=== PATIENT | male | born 1945 | race Caucasian/White ===

== ENCOUNTER 2024-04-01 20:07 | Inpatient (IN) | payer MEDICARE, OTHER ==
[~2024-04-01] VITALS: Ht 185.4 cm; Wt 72.1 kg
[2024-04-01] MEDS ORDERED: GLUC1KIT IM (20:34)
[2024-04-01] MEDS ORDERED: ACET650S13 RC (20:34)
[2024-04-01] MEDS ORDERED: AMIN30LI27 PO (20:34)
[2024-04-01] MEDS ORDERED: TRIA80OI TP (20:34)
[2024-04-01] MEDS ORDERED: TRIA15OI2 TP (20:34)
[2024-04-01] MEDS ORDERED: RISP1TAB7 PO (20:34)
[2024-04-01] MEDS ORDERED: MULT-225 PO (20:34)
[2024-04-01] MEDS ORDERED: TRAM50TA2 PO (20:34)
[2024-04-01] MEDS ORDERED: MUPI1OIN5 TP (20:34)
[2024-04-01] MEDS ORDERED: SERT25TA PO (20:34)
[2024-04-01 21:26] LABS: BASOPHILS % (AUTO) 1.2 % (0.0-2.0); EOSINOPHILS # (AUTO) 0.1 K/uL (0.0-0.7); EOSINOPHILS % (AUTO) 4.3 % (0.0-7.0); HEMATOCRIT 34.3 % (36.7-47.1); HEMOGLOBIN 11.6 g/dL (12.5-16.3); LYMPHOCYTES # (AUTO) 0.9 K/uL (0.8-4.8); MEAN CORPUSCULAR HEMOGLOBIN 31.3 uug (23.8-33.4); MEAN CORPUSCULAR HGB CONC 34 g/dL (32.5-36.3); MEAN CORPUSCULAR VOLUME 92.7 fL (73.0-96.2); MONOCYTES # (AUTO) 0.6 K/uL (0.1-1.30); MONOCYTES % (AUTO) 20.3 % (0.0-11.0); NEUTROPHILS # (AUTO) 1.3 K/uL (1.8-8.9); NEUTROPHILS % (AUTO) 43.2 % (38.5-71.5); PLATELET COUNT (AUTO) 137 K/uL (152-348); RED CELL DISTRIBUTION WIDTH 13.6 % (12.1-16.2); WHITE BLOOD COUNT (AUTO) 2.9 K/uL (3.6-10.2)
[2024-04-01 21:32] LABS: DIFFERENTIAL COMMENT 1
[2024-04-01 21:36] LABS: BASOPHILS % (MANUAL) 1 % (0-2); EOSINOPHILS % (MANUAL) 4 % (0-8); LYMPHOCYTES % (MANUAL) 30 % (20-40); MONOCYTES % (MANUAL) 15 % (2-10); NEUTROPHILS % (MANUAL) 50 % (42-75)
[2024-04-01 21:40] LABS: CALCIUM 8.8 mg/dL (8.5-10.1); CARBON DIOXIDE 29 mmol/L (21-32); CHLORIDE 109 mmol/L (98-107); CREATININE 1.2 mg/dL (0.6-1.3); GLUCOSE 169 mg/dL (74-106); POTASSIUM 4.2 mmol/L (3.5-5.1); SODIUM SERUM 146 mmol/L (136-145); UREA NITROGEN, BLOOD 33 mg/dL (7-18)
[2024-04-01 21:42] LABS: ETHANOL < 3 MG/DL (0-10)
[2024-04-01 21:51] LABS: THYROID STIMULATING HORMONE 1.237 mIU/mL (0.358-3.740)
[2024-04-01 21:52] LABS: ACETAMINOPHEN 6.4 ug/mL (10-30); ALANINE AMINOTRANSFERASE 45 U/L (16-63); ALBUMIN 3.3 g/dL (3.4-5.0); ALKALINE PHOSPHATASE 95 U/L (50-136); ASPARTATE AMINOTRANSFERASE 32 U/L (15-37); BILIRUBIN,TOTAL 0.2 mg/dL (0.2-1.0); TOTAL PROTEIN, SERUM 6.7 g/dL (6.4-8.2)
[2024-04-01 21:53] LABS: BILIRUBIN,DIRECT < 0.1 mg/dL (0.0-0.2)
[2024-04-02] MEDS ORDERED: HALOPERIDOL LACTATE 5 MG/1 ML VIAL ONE (00:10)
[2024-04-02] MEDS: HALOPERIDOL LACTATE 5 MG/1 ML VIAL IM ONE (00:15)
[2024-04-02] MEDS ORDERED: MAG HYDROX/AL HYDROX/SIMETH 30 ML LIQUID UDC PO PRN (00:45)
[2024-04-02] MEDS ORDERED: MAGNESIUM HYDROXIDE 30 ML LIQUID UDC PO PRN (00:45)
[2024-04-02] MEDS ORDERED: ACETAMINOPHEN 325 MG TABLET PO PRN (00:45)
[2024-04-02] MEDS: BLOOD SUGAR DIAGNOSTIC 1 EACH STRIP VI ONE (01:31)
[2024-04-02 01:55] VITALS: BP 147/74; TEMP 98; O2SAT 96
[2024-04-02] MEDS ORDERED: MUPI22OI2 ×2 (08:11)
[2024-04-02] MEDS ORDERED: TRAM50TA2 PO (08:11)
[2024-04-02] MEDS ORDERED: ASCO-340 PO (08:11)
[2024-04-02] MEDS ORDERED: INSU100V39 SQ (08:11)
[2024-04-02] MEDS ORDERED: HOME MED MISCELLANEOUS XX SCH (13:00)
[2024-04-02] MEDS ORDERED: TRIAMCINOLONE ACET 0.025% OINT 15 GM TUBE TP PRN (13:00)
[2024-04-02] MEDS ORDERED: ACETAMINOPHEN 650 MG SUPP.RECT RC PRN (13:00)
[2024-04-02] MEDS ORDERED: DEXTROSE 50% 50 ML DISP.SYRIN IV PRN (13:30)
[2024-04-02] MEDS: PROTEIN SUPPLEMENT (PROSTAT) 30 ML LIQUID PO SCH (17:00)
[2024-04-02] MEDS: BLOOD SUGAR DIAGNOSTIC 1 EACH STRIP VI SCH (17:00)
[2024-04-02 18:13] VITALS: BP 149/80; TEMP 98.7; O2SAT 95
[2024-04-02 20:00] VITALS: BP 126/84; TEMP 98; O2SAT 93
[2024-04-02] MEDS: ZIPRASIDONE 20 MG CAPSULE PO SCH (20:51)
[2024-04-02] MEDS: DIVALPROEX 125 MG TABLET.DR PO SCH (20:52)
[2024-04-02] MEDS: INSULIN REGULAR, HUMAN 300 UNIT/3 ML VIAL SQ PRN (20:59)
[2024-04-03 08:15] VITALS: BP 150/74; TEMP 98; O2SAT 98
[2024-04-03] MEDS ORDERED: MUPIROCIN 2% OINT 22 GM TUBE TP SCH (09:00)
[2024-04-03] MEDS ORDERED: SODIUM HYPOCHLORITE 0.125% (QUARTER STRENGTH) 473 ML BOTTLE TP SCH (09:00)
[2024-04-03] MEDS: MULTIVITAMINS,THERAPEUTIC TABLET PO SCH (09:55)
[2024-04-03] MEDS: ASCORBIC ACID 500 MG TABLET PO SCH (09:55)
[2024-04-03] MEDS: MUPIROCIN 2% OINT 22 GM TUBE TP SCH (09:58)
[2024-04-03] MEDS: TRIAMCINOLONE ACET 0.1% OINT 60 GM TUBE TP SCH (09:59)
[2024-04-03 15:36] VITALS: BP 160/88; TEMP 98; O2SAT 98
[2024-04-03 20:00] VITALS: TEMP 98; O2SAT 98
[2024-04-03] MEDS: SULFAMETH/TRIMETH 800/160 MG TABLET PO SCH (20:43)
[2024-04-03] MEDS: CEphaleXIN 500 MG CAPSULE PO SCH (21:19)
[2024-04-03] MEDS: ZOLPIDEM 5 MG TABLET PO PRN (23:19)
[2024-04-04 09:00] VITALS: BP 115/61; TEMP 98; O2SAT 98
[2024-04-04 15:37] VITALS: BP 127/56; TEMP 98; O2SAT 98
[2024-04-04 19:57] VITALS: BP 136/61; TEMP 98; O2SAT 96
[2024-04-05 08:16] VITALS: BP 102/53; TEMP 98.4; O2SAT 96
[2024-04-05 17:02] VITALS: BP 139/48; TEMP 98.3; O2SAT 96
[2024-04-05] MEDS: ZIPRASIDONE 20 MG CAPSULE PO SCH (21:01)
[2024-04-06 07:55] VITALS: BP 145/58; TEMP 97.3; O2SAT 96
[2024-04-06] MEDS: DIVALPROEX SPRINKLE 125 MG CAP.SPRINK PO SCH ×2 (08:27→20:20)
[2024-04-06 08:41] LABS: BASOPHILS # (AUTO) 0.1 K/UL (0.0-0.2); BASOPHILS % (AUTO) 0.9 % (0.0-2.0); EOSINOPHILS # (AUTO) 0.5 K/uL (0.0-0.7); EOSINOPHILS % (AUTO) 7.8 % (0.0-7.0); HEMATOCRIT 43.3 % (36.7-47.1); HEMOGLOBIN 14.1 g/dL (12.5-16.3); LYMPHOCYTES # (AUTO) 1.5 K/uL (0.8-4.8); MEAN CORPUSCULAR HGB CONC 33 g/dL (32.5-36.3); MEAN CORPUSCULAR VOLUME 95.2 fL (73.0-96.2); MONOCYTES # (AUTO) 0.7 K/uL (0.1-1.30); NEUTROPHILS # (AUTO) 3.6 K/uL (1.8-8.9); NEUTROPHILS % (AUTO) 57.3 % (38.5-71.5); PLATELET COUNT (AUTO) 179 K/uL (152-348); RED BLOOD CELL COUNT(AUTO) 4.55 MIL/uL (4.06-5.63); RED CELL DISTRIBUTION WIDTH 13.8 % (12.1-16.2); WHITE BLOOD COUNT (AUTO) 6.4 K/uL (3.6-10.2)
[2024-04-06 08:48] LABS: DIFFERENTIAL COMMENT 1
[2024-04-06 09:02] LABS: ALANINE AMINOTRANSFERASE 30 U/L (16-63); ALBUMIN 3.8 g/dL (3.4-5.0); ALKALINE PHOSPHATASE 93 U/L (50-136); ASPARTATE AMINOTRANSFERASE 21 U/L (15-37); BILIRUBIN,TOTAL 0.6 mg/dL (0.2-1.0); CALCIUM 9.4 mg/dL (8.5-10.1); CARBON DIOXIDE 28 mmol/L (21-32); CHLORIDE 102 mmol/L (98-107); CREATININE 1.1 mg/dL (0.6-1.3); GLUCOSE 95 mg/dL (74-106); POTASSIUM 4.2 mmol/L (3.5-5.1); SODIUM SERUM 138 mmol/L (136-145); TOTAL PROTEIN, SERUM 7.8 g/dL (6.4-8.2); UREA NITROGEN, BLOOD 23 mg/dL (7-18); VALPROIC ACID 30 ug/mL (50-100)
[2024-04-06 16:56] VITALS: BP 134/75; TEMP 97.6; O2SAT 97
[2024-04-06] MEDS ORDERED: levoFLOXacin 500 MG TABLET PO SCH (18:00)
[2024-04-06] MEDS: levoFLOXacin 250 MG TABLET PO SCH (18:58)
[2024-04-06] MEDS: TRAMADOL HCL 50 MG TABLET PO PRN (19:40)
[2024-04-07 08:07] VITALS: BP 97/54; TEMP 97.7; O2SAT 96
[2024-04-07] MEDS ORDERED: levoFLOXacin 250 MG TABLET PO SCH (18:30)
[2024-04-07] MEDS ORDERED: ZIPR40CA2 PO (18:38)
[2024-04-08] MEDS ORDERED: DIVA125C2 PO (09:33)
== END 2024-04-07 14:41 | disposition short-term general hospital (02) | DRG 885 ==
LOC: ER 20:17 → GPS 23:15
PROVIDERS: ADMIT Psychiatry & Neurology Psychiatry; ATTEND Nurse Practitioner Acute Care
DX: F25.9 Schizoaffective disorder, unspecified (principal); F02.818 Dementia in other diseases classified elsewhere, unspecified severity, with other behavioral disturbance; F02.83 Dementia in other diseases classified elsewhere, unspecified severity, with mood disturbance; L03.115 Cellulitis of right lower limb; G30.9 Alzheimer's disease, unspecified; Z88.1 Allergy status to other antibiotic agents; S91.101A Unspecified open wound of right great toe without damage to nail, initial encounter; L03.031 Cellulitis of right toe; B96.5 Pseudomonas (aeruginosa) (mallei) (pseudomallei) as the cause of diseases classified elsewhere; B95.61 Methicillin susceptible Staphylococcus aureus infection as the cause of diseases classified elsewhere; X58.XXXA Exposure to other specified factors, initial encounter; Y92.129 Unspecified place in nursing home as the place of occurrence of the external cause; R60.0 Localized edema; Z91.199 Patient's noncompliance with other medical treatment and regimen due to unspecified reason; Z79.899 Other long term (current) drug therapy; L20.9 Atopic dermatitis, unspecified; N40.0 Benign prostatic hyperplasia without lower urinary tract symptoms; E11.42 Type 2 diabetes mellitus with diabetic polyneuropathy; J44.9 Chronic obstructive pulmonary disease, unspecified; F32.9 Major depressive disorder, single episode, unspecified; F43.10 Post-traumatic stress disorder, unspecified; E78.5 Hyperlipidemia, unspecified; E86.0 Dehydration; R13.10 Dysphagia, unspecified; F50.89 Other specified eating disorder; K21.9 Gastro-esophageal reflux disease without esophagitis
CPT/HCPCS: 36415; 70030-TC; 73630; 80164; 84443; 85025; 93005; A4606; A4663; G0480; J1630; J1815; J3590

== ENCOUNTER 2024-04-07 15:01 | Inpatient (IN) | payer MEDICARE, MEDICAID ==
[~2024-04-07] VITALS: Ht 177.8 cm; Wt 86.2 kg
[~2024-04-07 15:01] MED LIST: ACET650S13 RC; AMIN30LI27 PO; ASCO-340 PO; GLUC1KIT IM; INSU100V39 SQ; MULT-225 PO; MUPI1OIN5 TP; MUPI22OI2; TRAM50TA2 PO; TRIA15OI2 TP; TRIA80OI TP
[2024-04-07 15:29] VITALS: BP 125/61; TEMP 97.6; O2SAT 93
[2024-04-07] MEDS ORDERED: ZIPR40CA2 PO (18:38)
[2024-04-07] MEDS ORDERED: TRIAMCINOLONE ACET 0.025% OINT 15 GM TUBE TP PRN (20:00)
[2024-04-07] MEDS ORDERED: TRAMADOL HCL 50 MG TABLET PO PRN (20:00)
[2024-04-07] MEDS ORDERED: HYDROCODONE/APAP 5-325MG TABLET PO PRN (20:00)
[2024-04-07] MEDS ORDERED: MUPIROCIN 2% OINT 22 GM TUBE TP SCH (20:00)
[2024-04-07] MEDS ORDERED: VANCOMYCIN IV 200 ML ONE (21:24)
[2024-04-07] MEDS: ZIPRASIDONE 20 MG CAPSULE PO SCH (21:44)
[2024-04-07] MEDS: ACETAMINOPHEN 325 MG TABLET PO PRN (21:44)
[2024-04-07] MEDS: VANCOMYCIN IV 1,000 MG in IV NORMAL SALINE 250 ML IV ONE (21:45)
[2024-04-08 06:00] VITALS: BP 118/74; TEMP 97.2; O2SAT 94
[2024-04-08] MEDS: PANTOPRAZOLE SODIUM 40 MG TABLET.DR PO SCH (06:05)
[2024-04-08 07:35] LABS: BASOPHILS # (AUTO) 0.1 K/UL (0.0-0.2); EOSINOPHILS # (AUTO) 0.5 K/uL (0.0-0.7); HEMATOCRIT 40.9 % (36.7-47.1); HEMOGLOBIN 13.5 g/dL (12.5-16.3); LYMPHOCYTES # (AUTO) 1.3 K/uL (0.8-4.8); LYMPHOCYTES % (AUTO) 22.2 % (20.5-51.5); MEAN CORPUSCULAR HEMOGLOBIN 31.1 uug (23.8-33.4); MEAN CORPUSCULAR HGB CONC 33 g/dL (32.5-36.3); MEAN CORPUSCULAR VOLUME 94.1 fL (73.0-96.2); MONOCYTES # (AUTO) 0.6 K/uL (0.1-1.30); MONOCYTES % (AUTO) 10.3 % (0.0-11.0); NEUTROPHILS # (AUTO) 3.5 K/uL (1.8-8.9); NEUTROPHILS % (AUTO) 57.5 % (38.5-71.5); PLATELET COUNT (AUTO) 219 K/uL (152-348); RED BLOOD CELL COUNT(AUTO) 4.35 MIL/uL (4.06-5.63); RED CELL DISTRIBUTION WIDTH 13.7 % (12.1-16.2)
[2024-04-08 07:37] LABS: DIFFERENTIAL COMMENT 1
[2024-04-08 07:45] LABS: ERYTHROCYTE SEDIMENTATION RATE 14 MM/HR (0-15)
[2024-04-08 08:00] LABS: ALBUMIN 3.5 g/dL (3.4-5.0); BILIRUBIN,TOTAL 0.8 mg/dL (0.2-1.0); CALCIUM 8.9 mg/dL (8.5-10.1); CREATININE 1.1 mg/dL (0.6-1.3); PHOSPHOROUS 3.4 mg/dL (2.5-4.9); POTASSIUM 3.8 mmol/L (3.5-5.1); TOTAL PROTEIN, SERUM 7.3 g/dL (6.4-8.2)
[2024-04-08] MEDS: PROTEIN SUPPLEMENT (PROSTAT) 30 ML LIQUID PO SCH (08:00)
[2024-04-08] MEDS ORDERED: TRIAMCINOLONE ACET 0.1% OINT 60 GM TUBE TP SCH (09:00)
[2024-04-08] MEDS ORDERED: VANCOMYCIN HCL 750 MG in IV DEXTROSE 5% 250 ML IV SCH (09:00)
[2024-04-08] MEDS ORDERED: Medication Not On Formulary EA (Amino Acids/Protein Hydrolys (Pro-Stat Sugar Free Liquid PO SCH (09:00)
[2024-04-08] MEDS: ASCORBIC ACID 500 MG TABLET PO SCH (09:15)
[2024-04-08] MEDS: MULTIVITAMINS,THERAPEUTIC TABLET PO SCH (09:16)
[2024-04-08] MEDS: TRIAMCINOLONE ACET 0.1% OINT 60 GM TUBE TP SCH (09:16)
[2024-04-08] MEDS: MUPIROCIN 2% OINT 22 GM TUBE TP SCH (09:16)
[2024-04-08] MEDS ORDERED: DIVA125C2 PO (09:33)
[2024-04-08] MEDS: MEROPENEM 1 G in IV NORMAL SALINE 100 ML IV SCH (10:01)
[2024-04-08] MEDS: DIVALPROEX SPRINKLE 125 MG CAP.SPRINK PO SCH (11:26)
[2024-04-09] VITALS: BP 129/53; TEMP 97.6
[2024-04-09 06:00] VITALS: BP 136/53; TEMP 98.1
[2024-04-09] MEDS: SODIUM HYPOCHLORITE 0.125% (QUARTER STRENGTH) 473 ML BOTTLE TP SCH (08:33)
[2024-04-09] MEDS ORDERED: LEVO500T90 PO (09:59)
[2024-04-09] MEDS ORDERED: DOXY-326 PO (09:59)
[2024-04-09 10:33] VITALS: BP 136/53; TEMP 97.6; O2SAT 93
[2024-04-09 12:00] VITALS: BP 122/63; TEMP 97.4; O2SAT 93
[2024-04-09] MEDS ORDERED: MUPIROCIN 2% OINT 22 GM TUBE TP SCH (13:00)
[2024-04-09 17:32] VITALS: BP 121/62; TEMP 97.8; O2SAT 93
[2024-04-10] MEDS ORDERED: HYDR-3972 PO (02:08)
[2024-04-10] MEDS ORDERED: PANT40TA2 PO (02:08)
[2024-04-10] MEDS ORDERED: SODI473S8 MC (02:14)
== END 2024-04-09 18:38 | DRG 605 ==
LOC: MEDSURG3 15:01
PROVIDERS: ADMIT Internal Medicine; ATTEND Internal Medicine
PROC: 05HB33Z Insertion of Infusion Device into Right Basilic Vein, Percutaneous Approach (ICD-10-PCS; principal; 2024-04-08)
DX: S91.101A Unspecified open wound of right great toe without damage to nail, initial encounter (principal); L03.115 Cellulitis of right lower limb; F02.83 Dementia in other diseases classified elsewhere, unspecified severity, with mood disturbance; F02.82 Dementia in other diseases classified elsewhere, unspecified severity, with psychotic disturbance; X58.XXXA Exposure to other specified factors, initial encounter; Y92.89 Other specified places as the place of occurrence of the external cause; B96.5 Pseudomonas (aeruginosa) (mallei) (pseudomallei) as the cause of diseases classified elsewhere; B95.61 Methicillin susceptible Staphylococcus aureus infection as the cause of diseases classified elsewhere; F25.9 Schizoaffective disorder, unspecified; L20.9 Atopic dermatitis, unspecified; G30.9 Alzheimer's disease, unspecified; Z88.1 Allergy status to other antibiotic agents; R62.7 Adult failure to thrive; Z68.27 Body mass index [BMI] 27.0-27.9, adult; R54 Age-related physical debility
CPT/HCPCS: 36415; 71045; 83735; 84100; 85025; 85651; 93005; A4663; G0378; J2185; J3370; J3590; J7050

== ENCOUNTER 2024-04-09 18:54 | Inpatient (IN) | payer MEDICARE, OTHER ==
[~2024-04-09] VITALS: Ht 177.8 cm; Wt 73.5 kg
[~2024-04-09 18:54] MED LIST changes: +DIVA125C2 PO; +DOXY-326 PO; +LEVO500T90 PO; +ZIPR40CA2 PO
[2024-04-09] MEDS ORDERED: QUETIAPINE FUMARATE 25 MG TABLET PO PRN (19:45)
[2024-04-09] MEDS ORDERED: MAG HYDROX/AL HYDROX/SIMETH 30 ML LIQUID UDC PO PRN (19:45)
[2024-04-09] MEDS ORDERED: MAGNESIUM HYDROXIDE 30 ML LIQUID UDC PO PRN (19:45)
[2024-04-09 19:57] VITALS: BP 124/71; TEMP 98.2; O2SAT 96
[2024-04-09] MEDS: BLOOD SUGAR DIAGNOSTIC 1 EACH STRIP VI ONE (20:23)
[2024-04-09] MEDS ORDERED: ACETAMINOPHEN 650 MG SUPP.RECT RC PRN (20:30)
[2024-04-09] MEDS ORDERED: MUPIROCIN 2% OINT 22 GM TUBE TP SCH (20:30)
[2024-04-09] MEDS ORDERED: DEXTROSE 50% 50 ML DISP.SYRIN IV PRN (20:45)
[2024-04-09] MEDS: BLOOD SUGAR DIAGNOSTIC 1 EACH STRIP VI SCH (21:09)
[2024-04-09] MEDS: ZOLPIDEM 5 MG TABLET PO PRN (21:25)
[2024-04-09] MEDS ORDERED: levoFLOXacin 500 MG TABLET PO SCH (23:15)
[2024-04-10] MEDS ORDERED: HYDR-3972 PO (02:08)
[2024-04-10] MEDS ORDERED: PANT40TA2 PO (02:08)
[2024-04-10] MEDS ORDERED: SODI473S8 MC (02:14)
[2024-04-10 08:03] VITALS: BP 115/58; TEMP 98.2; O2SAT 96
[2024-04-10] MEDS ORDERED: DOXYCYCLINE HYCLATE 100 MG TABLET PO SCH (09:00)
[2024-04-10] MEDS ORDERED: SODIUM HYPOCHLORITE 0.125% (QUARTER STRENGTH) 473 ML BOTTLE TP SCH (09:00)
[2024-04-10] MEDS ORDERED: PROTEIN SUPPLEMENT (PROSTAT) 30 ML LIQUID PO SCH (09:00)
[2024-04-10] MEDS: MULTIVITAMINS,THERAPEUTIC TABLET PO SCH (10:00)
[2024-04-10] MEDS: TRIAMCINOLONE ACET 0.1% OINT 60 GM TUBE TP SCH (10:00)
[2024-04-10] MEDS: MUPIROCIN 2% OINT 22 GM TUBE TP SCH (10:00)
[2024-04-10] MEDS: ASCORBIC ACID 500 MG TABLET PO SCH (10:00)
[2024-04-10] MEDS: DOXYCYCLINE HYCLATE 100 MG TABLET PO SCH (10:01)
[2024-04-10] MEDS: PROTEIN SUPPLEMENT (PROSTAT) 30 ML LIQUID PO SCH (10:01)
[2024-04-10] MEDS: levoFLOXacin 500 MG TABLET PO SCH (10:02)
[2024-04-10] MEDS ORDERED: DIVALPROEX 125 MG TABLET.DR PO SCH (14:00)
[2024-04-10] MEDS: SODIUM HYPOCHLORITE 0.125% (QUARTER STRENGTH) 473 ML BOTTLE TP SCH (14:15)
[2024-04-10] MEDS: DIVALPROEX 250 MG TABLET.DR PO SCH (14:20)
[2024-04-10 15:09] VITALS: BP 109/65; TEMP 98; O2SAT 96
[2024-04-10] MEDS: INSULIN REGULAR, HUMAN 300 UNIT/3 ML VIAL SQ PRN (16:33)
[2024-04-10] MEDS: OLANZAPINE 2.5 MG TABLET PO SCH (16:35)
[2024-04-10 20:06] VITALS: BP 116/66; TEMP 98.1; O2SAT 95
[2024-04-10] MEDS: TRAMADOL HCL 50 MG TABLET PO PRN (20:40)
[2024-04-11 07:30] VITALS: BP 127/51; TEMP 98; O2SAT 98
[2024-04-11 16:32] VITALS: BP 97/45; TEMP 98; O2SAT 98
[2024-04-11 19:54] VITALS: BP 119/57; TEMP 98.1; O2SAT 96
[2024-04-11] MEDS: OLANZAPINE 2.5 MG TABLET PO SCH (20:18)
[2024-04-12 07:49] VITALS: BP 93/46; TEMP 98.2; O2SAT 97
[2024-04-12 16:16] VITALS: BP 117/79; TEMP 98.1; O2SAT 97
[2024-04-12 19:59] VITALS: BP 109/57; TEMP 98; O2SAT 98
[2024-04-12] MEDS: DIVALPROEX SPRINKLE 125 MG CAP.SPRINK PO SCH (21:35)
[2024-04-13 08:04] LABS: BASOPHILS # (AUTO) 0.3 K/UL (0.0-0.2); BASOPHILS % (AUTO) 4.3 % (0.0-2.0); EOSINOPHILS # (AUTO) 0.6 K/uL (0.0-0.7); EOSINOPHILS % (AUTO) 9.4 % (0.0-7.0); HEMATOCRIT 37.9 % (36.7-47.1); HEMOGLOBIN 12.5 g/dL (12.5-16.3); LYMPHOCYTES # (AUTO) 1.5 K/uL (0.8-4.8); LYMPHOCYTES % (AUTO) 23.2 % (20.5-51.5); MEAN CORPUSCULAR HEMOGLOBIN 30.8 uug (23.8-33.4); MEAN CORPUSCULAR HGB CONC 33 g/dL (32.5-36.3); MEAN CORPUSCULAR VOLUME 93.4 fL (73.0-96.2); MONOCYTES # (AUTO) 0.6 K/uL (0.1-1.30); MONOCYTES % (AUTO) 9.5 % (0.0-11.0); NEUTROPHILS # (AUTO) 3.4 K/uL (1.8-8.9); NEUTROPHILS % (AUTO) 53.6 % (38.5-71.5); PLATELET COUNT (AUTO) 190 K/uL (152-348); RED BLOOD CELL COUNT(AUTO) 4.06 MIL/uL (4.06-5.63); RED CELL DISTRIBUTION WIDTH 13.2 % (12.1-16.2); WHITE BLOOD COUNT (AUTO) 6.3 K/uL (3.6-10.2)
[2024-04-13 08:21] LABS: DIFFERENTIAL COMMENT 1
[2024-04-13 08:30] LABS: ALANINE AMINOTRANSFERASE 19 U/L (16-63); ALBUMIN 3.4 g/dL (3.4-5.0); ALKALINE PHOSPHATASE 70 U/L (50-136); ASPARTATE AMINOTRANSFERASE 11 U/L (15-37); BILIRUBIN,TOTAL 0.5 mg/dL (0.2-1.0); CALCIUM 9.4 mg/dL (8.5-10.1); CARBON DIOXIDE 34 mmol/L (21-32); CHLORIDE 107 mmol/L (98-107); GLUCOSE 96 mg/dL (74-106); POTASSIUM 4.3 mmol/L (3.5-5.1); SODIUM SERUM 145 mmol/L (136-145); TOTAL PROTEIN, SERUM 6.9 g/dL (6.4-8.2); UREA NITROGEN, BLOOD 30 mg/dL (7-18); VALPROIC ACID 26 ug/mL (50-100)
[2024-04-13 08:33] VITALS: BP 137/68; TEMP 98.3; O2SAT 96
[2024-04-13] MEDS: OLANZAPINE 5 MG TABLET PO SCH (08:46)
[2024-04-13 16:32] VITALS: BP 103/61; TEMP 98.1; O2SAT 96
[2024-04-13 19:52] VITALS: BP 118/64; TEMP 98.1; O2SAT 96
[2024-04-13] MEDS: TRAMADOL HCL 50 MG TABLET PO SCH (20:21)
[2024-04-13] MEDS: DIVALPROEX SPRINKLE 125 MG CAP.SPRINK PO SCH (21:12)
[2024-04-14 07:49] VITALS: BP 130/48; TEMP 97.9; O2SAT 96
[2024-04-14 15:35] VITALS: BP 121/57; TEMP 97.9; O2SAT 96
[2024-04-14] MEDS: REMEDY ESSENTIAL ZINC PASTE 113 GM TOP PRN (17:31)
[2024-04-14 19:52] VITALS: BP 124/50; TEMP 98.1; O2SAT 100
[2024-04-15 08:01] VITALS: BP 120/57; TEMP 98.2; O2SAT 98
[2024-04-15] MEDS: diphenhydrAMINE 25 MG CAP PO PRN (12:39)
[2024-04-15 15:18] VITALS: BP 117/72; TEMP 98.2; O2SAT 98
[2024-04-15 19:48] VITALS: BP 118/64; TEMP 98.2; O2SAT 93
[2024-04-15] MEDS: MELATONIN 3 MG TABLET PO SCH (20:10)
[2024-04-16 07:39] VITALS: BP 100/51; TEMP 98.2; O2SAT 98
[2024-04-16] MEDS: MUPIROCIN 2% OINT 22 GM TUBE TP SCH (08:44)
[2024-04-16 15:21] VITALS: BP 96/50; TEMP 98; O2SAT 96
[2024-04-17 07:15] LABS: BASOPHILS % (AUTO) 0.6 % (0.0-2.0); EOSINOPHILS # (AUTO) 0.5 K/uL (0.0-0.7); HEMATOCRIT 38.3 % (36.7-47.1); HEMOGLOBIN 12.8 g/dL (12.5-16.3); LYMPHOCYTES # (AUTO) 1.3 K/uL (0.8-4.8); LYMPHOCYTES % (AUTO) 18.8 % (20.5-51.5); MEAN CORPUSCULAR HEMOGLOBIN 31.8 uug (23.8-33.4); MEAN CORPUSCULAR HGB CONC 34 g/dL (32.5-36.3); MEAN CORPUSCULAR VOLUME 94.9 fL (73.0-96.2); MONOCYTES # (AUTO) 0.7 K/uL (0.1-1.30); MONOCYTES % (AUTO) 9.8 % (0.0-11.0); NEUTROPHILS # (AUTO) 4.3 K/uL (1.8-8.9); NEUTROPHILS % (AUTO) 63.8 % (38.5-71.5); PLATELET COUNT (AUTO) 151 K/uL (152-348); RED BLOOD CELL COUNT(AUTO) 4.03 MIL/uL (4.06-5.63); RED CELL DISTRIBUTION WIDTH 13.2 % (12.1-16.2); WHITE BLOOD COUNT (AUTO) 6.7 K/uL (3.6-10.2)
[2024-04-17 07:17] LABS: DIFFERENTIAL COMMENT 1
[2024-04-17 07:47] LABS: ALBUMIN 3.6 g/dL (3.4-5.0); BILIRUBIN,TOTAL 0.6 mg/dL (0.2-1.0); CALCIUM 9.4 mg/dL (8.5-10.1); TOTAL PROTEIN, SERUM 7.4 g/dL (6.4-8.2)
[2024-04-17 08:02] VITALS: BP 130/57; TEMP 98.4; O2SAT 96
[2024-04-17] MEDS ORDERED: DEXTROSE 50% 50 ML DISP.SYRIN IV PRN (11:07)
[2024-04-17] MEDS ORDERED: INSULIN REGULAR, HUMAN 300 UNIT/3 ML VIAL SQ PRN (11:08)
[2024-04-17 15:03] VITALS: BP 128/62; TEMP 97.4; O2SAT 98
[2024-04-17] MEDS: BLOOD SUGAR DIAGNOSTIC 1 EACH STRIP VI SCH (16:35)
[2024-04-17 20:00] VITALS: BP 127/56; TEMP 98; O2SAT 97
[2024-04-17] MEDS: ACETAMINOPHEN 325 MG TABLET PO PRN (21:54)
[2024-04-18 08:00] VITALS: BP 127/44; TEMP 97.8; O2SAT 97
[2024-04-18 20:00] VITALS: BP 138/76; TEMP 97.2; O2SAT 96
[2024-04-18] MEDS: GABAPENTIN 100 MG CAPSULE PO SCH (20:13)
[2024-04-19 08:19] VITALS: BP 144/58; TEMP 98; O2SAT 96
[2024-04-19 16:17] VITALS: BP 110/51; TEMP 97.9; O2SAT 96
[2024-04-19] MEDS: MELATONIN 3 MG TABLET PO SCH (21:39)
[2024-04-20 08:10] VITALS: BP 94/53; TEMP 98.1; O2SAT 97
[2024-04-20 16:26] VITALS: BP 118/55; TEMP 98; O2SAT 97
[2024-04-20 20:09] VITALS: BP 97/50; TEMP 98.1; O2SAT 95
[2024-04-21 09:30] VITALS: BP 111/54; TEMP 97.7; O2SAT 97
[2024-04-21] MEDS: GABAPENTIN 100 MG CAPSULE PO SCH (13:56)
[2024-04-21 16:33] VITALS: BP 120/65; TEMP 97.8; O2SAT 97
[2024-04-21 18:45] LABS: CALCIUM 9.3 mg/dL (8.5-10.1); POTASSIUM 4.7 mmol/L (3.5-5.1)
[2024-04-21 19:55] VITALS: BP 118/67; TEMP 97.8; O2SAT 95
[2024-04-22 08:00] VITALS: BP 135/56; TEMP 98.3; O2SAT 95
[2024-04-22 14:49] LABS: CALCIUM 9.1 mg/dL (8.5-10.1); CARBON DIOXIDE 31 mmol/L (21-32); CHLORIDE 106 mmol/L (98-107); GLUCOSE 138 mg/dL (74-106); POTASSIUM 4.6 mmol/L (3.5-5.1); SODIUM SERUM 145 mmol/L (136-145); UREA NITROGEN, BLOOD 30 mg/dL (7-18)
[2024-04-23 08:00] VITALS: BP 119/50; TEMP 97.8; O2SAT 98
[2024-04-23] MEDS ORDERED: PROTEIN SUPPLEMENT (PROSTAT) 30 ML LIQUID PO SCH (11:00)
[2024-04-23] MEDS: GABAPENTIN 300 MG CAPSULE PO SCH (13:58)
[2024-04-23 16:09] VITALS: BP 159/70; TEMP 97.8; O2SAT 96
[2024-04-23] MEDS: PROTEIN SUPPLEMENT (PROSTAT) 30 ML LIQUID PO SCH (17:01)
[2024-04-23 20:00] VITALS: BP 117/62; TEMP 97.6; O2SAT 100
[2024-04-23] MEDS: TRAZODONE 50 MG TABLET GT SCH (20:12)
[2024-04-23] MEDS: TRAZODONE 50 MG TABLET PO SCH (20:32)
[2024-04-24 07:24] LABS: BASOPHILS % (AUTO) 0.5 % (0.0-2.0); EOSINOPHILS # (AUTO) 0.6 K/uL (0.0-0.7); EOSINOPHILS % (AUTO) 14.5 % (0.0-7.0); HEMATOCRIT 36.3 % (36.7-47.1); HEMOGLOBIN 11.9 g/dL (12.5-16.3); LYMPHOCYTES # (AUTO) 1.3 K/uL (0.8-4.8); LYMPHOCYTES % (AUTO) 29.5 % (20.5-51.5); MEAN CORPUSCULAR HGB CONC 33 g/dL (32.5-36.3); MEAN CORPUSCULAR VOLUME 94.7 fL (73.0-96.2); MONOCYTES # (AUTO) 0.6 K/uL (0.1-1.30); MONOCYTES % (AUTO) 14.7 % (0.0-11.0); NEUTROPHILS # (AUTO) 1.8 K/uL (1.8-8.9); NEUTROPHILS % (AUTO) 40.8 % (38.5-71.5); PLATELET COUNT (AUTO) 128 K/uL (152-348); RED BLOOD CELL COUNT(AUTO) 3.84 MIL/uL (4.06-5.63); RED CELL DISTRIBUTION WIDTH 13.1 % (12.1-16.2); WHITE BLOOD COUNT (AUTO) 4.3 K/uL (3.6-10.2)
[2024-04-24 07:31] LABS: DIFFERENTIAL COMMENT 1
[2024-04-24 07:50] VITALS: BP 94/59; TEMP 97.6; O2SAT 98
[2024-04-24 07:53] LABS: ALBUMIN 3.1 g/dL (3.4-5.0); BILIRUBIN,TOTAL 0.3 mg/dL (0.2-1.0); CREATININE 0.9 mg/dL (0.6-1.3); PHOSPHOROUS 3.2 mg/dL (2.5-4.9); POTASSIUM 4.1 mmol/L (3.5-5.1); TOTAL PROTEIN, SERUM 6.5 g/dL (6.4-8.2)
[2024-04-24 07:58] LABS: THYROID STIMULATING HORMONE 0.773 mIU/mL (0.358-3.740)
[2024-04-24 15:57] VITALS: BP 131/68; TEMP 97.8; O2SAT 97
[2024-04-24 20:00] VITALS: BP 120/69; TEMP 98; O2SAT 95
[2024-04-25 07:56] VITALS: BP 100/78; TEMP 98.4; O2SAT 96
[2024-04-25 16:14] VITALS: BP 128/76; TEMP 97.6; O2SAT 92
[2024-04-26 08:24] VITALS: BP 132/58; TEMP 97.8; O2SAT 97
== END 2024-04-26 13:30 | DRG 885 ==
LOC: GPS 18:54
PROVIDERS: ADMIT Psychiatry & Neurology Psychiatry; ATTEND Nurse Practitioner Acute Care
DX: F39 Unspecified mood [affective] disorder (principal); L03.115 Cellulitis of right lower limb; F02.818 Dementia in other diseases classified elsewhere, unspecified severity, with other behavioral disturbance; F25.9 Schizoaffective disorder, unspecified; G30.9 Alzheimer's disease, unspecified; L20.9 Atopic dermatitis, unspecified; M20.42 Other hammer toe(s) (acquired), left foot; M20.41 Other hammer toe(s) (acquired), right foot; Z88.1 Allergy status to other antibiotic agents; E11.621 Type 2 diabetes mellitus with foot ulcer; L97.512 Non-pressure chronic ulcer of other part of right foot with fat layer exposed; R60.0 Localized edema; R79.89 Other specified abnormal findings of blood chemistry; K21.9 Gastro-esophageal reflux disease without esophagitis; N40.0 Benign prostatic hyperplasia without lower urinary tract symptoms; G47.00 Insomnia, unspecified; Z79.899 Other long term (current) drug therapy; Z79.4 Long term (current) use of insulin
CPT/HCPCS: 36415; 80164; 83735; 84100; 84443; 85025; 93005; A6209; J1815; J3490; J3590; Q0163